=== PATIENT | female | born 2000 | race Caucasian/White ===

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

== ENCOUNTER 2021-02-07 15:14 | Emergency (ER) | payer OTHER ==
[~2021-02-07] VITALS: Ht 160 cm; Wt 115.5 kg
[~2021-02-07 15:14] MED LIST changes: +HYDROCODON-ACE1 EAC7 PO
[2021-02-07 15:30] VITALS: BP 101/72; Ht 160 cm; Wt 115.5 kg
[2021-02-07 16:39] LABS: BILIRUBIN NEGATIVE (NEGATIVE); KETONE NEGATIVE (NEGATIVE); NITRITE NEGATIVE (NEGATIVE); UROBILINOGEN NORMAL mg/dL (< 2)
[2021-02-07 16:40] LABS: SQUAMOUS EPITHELIAL 0-5 HPF (0-4)
[2021-02-07 16:41] LABS: BACTERIA FEW HPF (NONE SEEN)
[2021-02-07 17:02] LABS: BASOPHILS 0.5 % (0-2); EOSINOPHILS 0.9 % (0-7); HEMATOCRIT 36.4 % (36.0-48.0); HEMOGLOBIN 11.2 g/dL (12-16); MCHC 30.8 g/dL (31.0-37.0); MEAN PLATELET VOLUME 7.5 fL (7.4-10.4); MONOCYTES 4.7 % (2-11); NEUTROPHILS 80.9 % (40-80); PLATELET COUNT 411 10x3/uL (130-400); RBC 5.36 10x6/uL (4.00-5.40); RDW 17.9 % (11.5-14.5)
[2021-02-07 17:15] LABS: CALC OSMOLALITY 272 mosm/kg (275-300); CALCIUM 9.4 mg/dL (8.5-10.1); CARBON DIOXIDE 23.1 mmol/L (21.0-32.0); CHLORIDE - SERUM 102 mmol/L (98-107); CREATININE - SERUM 0.7 mg/dL (0.6-1.3); GLUCOSE 92 mg/dL (74-106); POTASSIUM - SERUM 3.2 mmol/L (3.5-5.1); SODIUM 137 mmol/L (136-145); UREA NITROGEN 11 mg/dL (7-18); eGFR NON AFRICAN AMERICAN > 90 mL/min (90-120)
[2021-02-07 17:20] LABS: ALBUMIN 3.7 g/dL (3.4-5.0); ALKALINE PHOSPHATASE 75 U/L (30-120); ALT (SGPT) 26 U/L (10-68); BILIRUBIN - TOTAL 0.31 mg/dL (0.2-1.3); PROTEIN - SERUM 8.2 g/dL (6.4-8.2)
[2021-02-07 17:22] LABS: HCG SERUM NEGATIVE (NEGATIVE)
== END 2021-02-07 18:37 | disposition home or self-care (01) ==
LOC: D.ER 15:14
PROVIDERS: Family Medicine
DX: N93.9 Abnormal uterine and vaginal bleeding, unspecified (principal); D64.9 Anemia, unspecified; E87.6 Hypokalemia; R10.30 Lower abdominal pain, unspecified